=== PATIENT | female | born 1995 | race Caucasian/White ===

== ENCOUNTER 2019-02-09 00:51 | Emergency (ER) | payer MEDICAID ==
[2019-02-09 01:21] VITALS: BP 112/77
--- NOTE | 2019-02-09 01:25 | NUR ---
FIRST CONTACT WITH PT. PT'S MOTHER STATES PT HAS RASH TO WHOLE BODY INTERMITTENTLY "FOR A WHILE"(ABOUT 6 MONTHS). ALSO C/O INTERMITTENT FEVERS AND BODY ACHES. PT DENIES N/V/D AT THIS TIME. BP/SPO2 MONITORS IN PLACE. CALL LIGHT WITHIN REACH. PA AT BEDSIDE TO ASSESS.
[2019-02-09] MEDS ORDERED: BICILLIN-LA 2,400,000 UNITS/4 ML IM ONE (02:00)
--- NOTE | 2019-02-09 02:01 | NUR ---
FARIBA REQUESTING FROM PHARMACY.
--- NOTE | 2019-02-09 02:15 | NUR ---
PT MEDICATED PER EMAR. PT TOLERATED WELL. PT'S AOX4. RESPS EVEN AND UNLABORED.
--- NOTE | 2019-02-09 02:16 | NUR ---
PT GIVEN DC INSTRUCTIONS. PT AMB TO DC WITH STEADY GAIT. NO ACUTE DISTRESS AT DC.
== END 2019-02-09 02:16 | disposition home or self-care (01) ==
LOC: ED 02:10
DX: A53.9 Syphilis, unspecified (principal); R21 Rash and other nonspecific skin eruption; F17.210 Nicotine dependence, cigarettes, uncomplicated; Z72.9 Problem related to lifestyle, unspecified
CPT/HCPCS: 36415; 86592; 96372; 99283; J0561